=== PATIENT | male | born 1980 | race Caucasian/White ===

== ENCOUNTER 2020-11-28 09:03 | Emergency (ER) | payer OTHER ==
[2020-11-28 09:13] VITALS: BP 145/80; PULSE 96; TEMP 97.9; BMI 29.8
== END 2020-11-28 10:16 | disposition home or self-care (01) ==
LOC: JERFT 09:03
DX: Z04.1 Encounter for examination and observation following transport accident (principal)
CPT/HCPCS: 99281-25